=== PATIENT | male | born 1970 | race Caucasian/White ===

== ENCOUNTER 2017-12-09 13:56 | Emergency (ER) | payer OTHER ==
[2017-12-09] MEDS ORDERED: ASPIRIN 81 MG CHEWABLE TAB PO ONE (13:58)
[2017-12-09 14:05] VITALS: TEMP 97.7
--- NOTE | 2017-12-09 14:06 | CPEKG ---
Heart Rate: 55 RR Interval: 1091 P-R Interval: 140 QRSD Interval: 100 QT Interval: 412 QTC Interval: 394 P [place]: 30 QRS [place]: -27 T Wave [place]: 41 EKG Severity - OTHERWISE NORMAL ECG - EKG Impression: SINUS RHYTHM EKG Impression: BORDERLINE LEFT AXIS DEVIATION Electronically Signed By: Vinnie Claudio 09-Dec-2017 14:58:13
[2017-12-09 14:23] LABS: PLATELET COUNT 299 10^3/uL (150-400)
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
[2017-12-09 18:22] VITALS: BP 111/82; PULSE 54; RESP 18; O2SAT 95
== END 2017-12-09 18:20 | disposition home or self-care (01) ==
LOC: CED 13:56
DX: R07.89 Other chest pain (principal)
CPT/HCPCS: 71046-PO; 80048-PO; 84484-PO; 85025-PO; 85378-PO